=== PATIENT | female | born 1980 | race Caucasian/White ===

== ENCOUNTER 2016-09-04 17:40 | Emergency (ER) | payer OTHER ==
--- NOTE | 2016-09-04 21:50 | ED ORDER SUMMARY ---
..... Patient: TED MARSH OrderSheet [facility] VisitID: [id number] [place] [address] 36y, F Registration Date/Time: 09/04/2016 ORDER SHEET Weight: 95.7 kg (stated) Allergies: Penicillin, Compazine, Tramadol, Toradol GENERAL ORDERS: CBC w Diff Urgent (18:09/04/2016 Kat Magana) (Ack 18:30 TBergley) (18:44 LWhalen R.N.) CMP Urgent (18:09/04/2016 Kat Magana) (Ack 18:30 TBergley) (18:44 LWhalen R.N.) UA-Culture if indicated Urgent (18:09/04/2016 Kat Magana) (Ack 18:30 TBergley) (18:44 LWhalen R.N.) Amylase Urgent (18:09/04/2016 Kat Magana) (Ack 18:30 TBergley) (18:44 LWhalen R.N.) Lipase Urgent (18:09/04/2016 Kat Magana) (Ack 18:30 TBergley) (18:44 LWhalen R.N.) Urine Urgent (18:09/04/2016 Kat Magana) (Ack 18:30 TBergley) (18:44 LWhalen R.N.) Urine Drug Screen Urgent (18:09/04/2016 Kat Magana) (Ack 18:30 TBergley) (18:44 LWhalen R.N.) MEDICATION ORDERS: GI Cocktail RED PO 35 mL with Lidocaine Viscous Mouth/Throat 10 mL, Diphenhydramine Oral 10 mL, Maalox Plus Oral 15 mL (NOW) (20:04 09/04/2016 Kat Magana) (20:15 DBeyer R.N.) IV FLUIDS: IV NS : initial bolus none -, then 1000 mL/hr for X1 (NOW) (18:09/04/2016 Kat Magana) (18:43 LWhalen R.N.) Zofran IV 4 mg (NOW) (18:07 09/04/2016 Kat Magana) (18:43 Katherine Yan) Famotidine IV 20 mg/50mL (NOW) (20:05 09/04/2016 Kat Magana) (20:15 Kojo Yan) ORDER SHEET NOTES: [Electronically signed by Nixon Westbrook Dr. (22:15 09/04/2016)] [Electronically signed by Osiel Grant R.N. (03:36 09/05/2016)] [Electronically locked/signed by Osiel Grant R.N. (03:36 09/05/2016)]
--- NOTE | 2016-09-04 21:50 | ED ORDER SUMMARY ---
..... Patient: TED MARSH OrderSheet [facility] VisitID: [id number] [place] [address] 36y, F Registration Date/Time: 09/04/2016 ORDER SHEET Weight: 95.7 kg (stated) Allergies: Penicillin, Compazine, Tramadol, Toradol GENERAL ORDERS: CBC w Diff Urgent (18:09/04/2016 Kat Magana) (Ack 18:30 TBergley) (18:44 LWhalen R.N.) CMP Urgent (18:09/04/2016 Kat Magana) (Ack 18:30 TBergley) (18:44 LWhalen R.N.) UA-Culture if indicated Urgent (18:09/04/2016 Kat Magana) (Ack 18:30 TBergley) (18:44 LWhalen R.N.) Amylase Urgent (18:09/04/2016 Kat Magana) (Ack 18:30 TBergley) (18:44 LWhalen R.N.) Lipase Urgent (18:09/04/2016 Kat Magana) (Ack 18:30 TBergley) (18:44 LWhalen R.N.) Urine Urgent (18:09/04/2016 Kat Magana) (Ack 18:30 TBergley) (18:44 LWhalen R.N.) Urine Drug Screen Urgent (18:09/04/2016 Kat Magana) (Ack 18:30 TBergley) (18:44 LWhalen R.N.) MEDICATION ORDERS: GI Cocktail RED PO 35 mL with Lidocaine Viscous Mouth/Throat 10 mL, Diphenhydramine Oral 10 mL, Maalox Plus Oral 15 mL (NOW) (20:04 09/04/2016 Kat Magana) (20:15 DBeyer R.N.) IV FLUIDS: IV NS : initial bolus none -, then 1000 mL/hr for X1 (NOW) (18:09/04/2016 Kat Magana) (18:43 LWhalen R.N.) Zofran IV 4 mg (NOW) (18:07 09/04/2016 Kat Magana) (18:43 Katherine Yan) Famotidine IV 20 mg/50mL (NOW) (20:05 09/04/2016 Kat Magana) (20:15 Kojo Yan) ORDER SHEET NOTES: [Electronically signed by Nixon Westbrook Dr. (22:15 09/04/2016)] [Electronically signed by Osiel Grant R.N. (03:36 09/05/2016)] [Electronically locked/signed by Osiel Grant R.N. (03:36 09/05/2016)]
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
--- NOTE | 2016-09-05 03:37 | ED MAR SUMMARY ---
..... Medication Administration Record [facility] [address] [place] [address] Patient: TED MARSH Visit ID: [id number] 36y, F Weight: 95.7 kg Height/Length: 67 in BMI: 33.1 ALLERGIES: Toradol, Tramadol, Compazine, Penicillin Start 18:43 09/04/2016 Ciera Kumar R.N., Stop 20:39 09/04/2016 Osiel Grant R.N. Medication Administered: IV NS (SALINE), Dose: IV Fluids over 1 hour(s), Rate: 1000 mL/hr, Dispensed: 1000 mL bag, Site: #1 right wrist. Medication Ordered: IV NS : initial bolus none -, then 1000 mL/hr for X1 (NOW). Given 18:43 09/04/2016 Ciera Kumar R.N. Medication Administered: ZOFRAN [IVP] (ONDANSETRON HCL), Dose: 4 mg IVP over 2 minute(s), Site: #1 right wrist. Medication Ordered: Zofran IV 4 mg (NOW). Given 20:15 09/04/2016 Osiel Grant R.N. Medication Administered: GI COCKTAIL RED [PO] (MAGNESIUM-ALUMINUM), Dose: 35 mL PO. Medication Ordered: GI Cocktail RED PO 35 mL with Lidocaine Viscous Mouth/Throat 10 mL, Diphenhydramine Oral 10 mL, Maalox Plus Oral 15 mL (NOW). Given 20:15 09/04/2016 Osiel Grant R.N. Medication Administered: FAMOTIDINE [IVP], Dose: 20 mg IVP over 20 minute(s), Site: #1 right wrist. Medication Ordered: Famotidine IV 20 mg/50mL (NOW).
--- NOTE | 2016-09-05 03:37 | ED MAR SUMMARY ---
..... Medication Administration Record [facility] [address] [place] [address] Patient: TED MARSH Visit ID: [id number] 36y, F Weight: 95.7 kg Height/Length: 67 in BMI: 33.1 ALLERGIES: Toradol, Tramadol, Compazine, Penicillin Start 18:43 09/04/2016 Ciera Kumar R.N., Stop 20:39 09/04/2016 Osiel Grant R.N. Medication Administered: IV NS (SALINE), Dose: IV Fluids over 1 hour(s), Rate: 1000 mL/hr, Dispensed: 1000 mL bag, Site: #1 right wrist. Medication Ordered: IV NS : initial bolus none -, then 1000 mL/hr for X1 (NOW). Given 18:43 09/04/2016 Ciera Kumar R.N. Medication Administered: ZOFRAN [IVP] (ONDANSETRON HCL), Dose: 4 mg IVP over 2 minute(s), Site: #1 right wrist. Medication Ordered: Zofran IV 4 mg (NOW). Given 20:15 09/04/2016 Osiel Grant R.N. Medication Administered: GI COCKTAIL RED [PO] (MAGNESIUM-ALUMINUM), Dose: 35 mL PO. Medication Ordered: GI Cocktail RED PO 35 mL with Lidocaine Viscous Mouth/Throat 10 mL, Diphenhydramine Oral 10 mL, Maalox Plus Oral 15 mL (NOW). Given 20:15 09/04/2016 Osiel Grant R.N. Medication Administered: FAMOTIDINE [IVP], Dose: 20 mg IVP over 20 minute(s), Site: #1 right wrist. Medication Ordered: Famotidine IV 20 mg/50mL (NOW).
--- NOTE | 2016-09-05 03:37 | ED MED RECONCILIATION SUMMARY ---
Patient: TED MARSH Medication Reconciliation Report [facility] VisitID: [id number] [place] [address] 36y, F Registration Date/Time: 09/04/2016 Weight: 95.7 kg Height/Length: 67 in. BMI: 33.1 ALLERGIES: Compazine, Penicillin, Toradol, Tramadol The patient's Home Medications are listed below: CONTINUE TAKING THE FOLLOWING MEDICATIONS: Albuterol Sulfate HFA Inhalation Morphine Sulfate Oral Vit D-Vit E-Safflower Oil External Xanax Oral Zofran ODT Oral The source(s) of the original Home Medication information: Not obtained. The following Medications were given to the patient in the Emergency Department: IV NS IV Fluids bolus 0, then 1000 mL/hr, administered: 09/04/2016 6:43:00 PM Zofran [IVP] IVP 4 mg, administered: 09/04/2016 6:43:00 PM Famotidine [IVP] IVP 20 mg, administered: 09/04/2016 8:15:00 PM GI COCKTAIL RED [PO] PO 35 mL, administered: 09/04/2016 8:15:00 PM The following Medications were prescribed to the patient: Zantac 150 mg: take 1 orally every 12 hours. Dispense sixty (60). No refills. Substitution is permissible. -- Nixon Westbrook Dr.
--- NOTE | 2016-09-05 03:37 | ED MED RECONCILIATION SUMMARY ---
Patient: TED MARSH Medication Reconciliation Report [facility] VisitID: [id number] [place] [address] 36y, F Registration Date/Time: 09/04/2016 Weight: 95.7 kg Height/Length: 67 in. BMI: 33.1 ALLERGIES: Compazine, Penicillin, Toradol, Tramadol The patient's Home Medications are listed below: CONTINUE TAKING THE FOLLOWING MEDICATIONS: Albuterol Sulfate HFA Inhalation Morphine Sulfate Oral Vit D-Vit E-Safflower Oil External Xanax Oral Zofran ODT Oral The source(s) of the original Home Medication information: Not obtained. The following Medications were given to the patient in the Emergency Department: IV NS IV Fluids bolus 0, then 1000 mL/hr, administered: 09/04/2016 6:43:00 PM Zofran [IVP] IVP 4 mg, administered: 09/04/2016 6:43:00 PM Famotidine [IVP] IVP 20 mg, administered: 09/04/2016 8:15:00 PM GI COCKTAIL RED [PO] PO 35 mL, administered: 09/04/2016 8:15:00 PM The following Medications were prescribed to the patient: Zantac 150 mg: take 1 orally every 12 hours. Dispense sixty (60). No refills. Substitution is permissible. -- Nixon Westbrook Dr.
--- NOTE | 2016-09-05 03:37 | ED DISCHARGE INSTRUCTIONS ---
Patient: TED MARSH General Instructions [facility] VisitID: [id number] [place] [address] 36y, F Registration Date/Time: 09/04/2016 Acute gastritis. No alcoholic gastritis or hemorrhagic gastritis. INSTRUCTIONS Avoid alcohol and NSAIDS. NSAIDS include aspirin, ibuprofen (Advil) and naproxen (Aleve). Avoid fatty and spicy foods. Your Current Medications: CONTINUE TAKING THE FOLLOWING MEDICATIONS: Albuterol Sulfate HFA Inhalation. Morphine Sulfate Oral. Vit D-Vit E-Safflower Oil External. Xanax Oral. Zofran ODT Oral. Prescription Medications: Zantac 150 mg: take 1 orally every 12 hours. Dispense sixty (60). No refills. Substitution is permissible. Follow-up: Follow up with your doctor in about four days. Call for an appointment. Screening today revealed the patient's blood pressure to be in the pre-hypertensive range. The patient should follow up with a primary care provider for blood pressure management. ADDITIONAL INFORMATION Gastritis (Adult) Gastritis is an irritation of the stomach lining. It can be acute (recent) or chronic (lasting a long time). Gastritis can be caused by overuse of alcohol or anti-inflammatory medications (such as aspirin, ibuprofen, or prednisone). H pyloriinfection can also cause chronic gastritis. Gastritis can cause a dull ache or burning pain in the upper abdomen. Other symptoms include nausea, vomiting, loss of appetite, and belching or bloating. Blood in the vomit or stools (red or black) is a sign of bleeding in the stomach. This requires immediate medical attention. Tests for H pyloriare used to screen for bacterial infection. If no infection is found, gastritis can be treated by stopping the cause and treating with antacids plus an acid theresa medication. If H pylori infection is found, antibiotics will also be prescribed. Persons 55 years and older may undergo other tests before treatment is started. Two common tests are used to evaluate your symptoms. An upper GI series is an x-ray taken after you drink a chalky liquid called barium. This coats the stomach and allows the doctor to view any problems in the stomach on the x-ray. Another test is called endoscopy, during which a long thin tube called an endoscope is passed down your throat to the stomach. A camera at the end of the scope allows the doctor to view inside the stomach to check the cause of your symptoms. Home Care: Take the prescribed acid theresa medication for the full course of treatment even if you begin to feel better sooner. This medication can take up to several days to fully control your symptoms. If you cant afford the prescribed medication, you can try [id number] acid blockers, such as Pepcid AC, Tagamet, Zantac, or Aciphex. If these do not relieve your symptoms, a stronger acid-theresa can be tried, such as Prilosec OTC. If you have been prescribed an antibiotic to treat H pyloriinfection, finish the full course of medication. Do so even if you begin to feel better sooner. If you stop the medication too soon, the infection can return and be harder to treat. You can use antacids, such as Tums, Rolaids, Mylanta, or Maalox, for pain. This will be useful the first few days after starting acid blockers when the blockers havent started working yet. Follow the directions on the label. Liquid antacids may work better than tablets. Note that antacids can interfere with absorption of certain medications. Specifically, do not take Tagamet (cimetidine), Zantac (ranitidine), or Carafate (sucralfate) within 1 hour of taking an antacid. Talk with your pharmacist if you have any questions. Symptoms of gastritis can be worsened by certain foods. Limit or avoid fatty, fried, and spicy foods, as well as coffee, chocolate, mint, and foods with high acid content such as tomatoes and citrus fruit and juices (orange, grapefruit, lemon). Avoid alcohol, caffeine, and tobacco, which can delay healing. Avoid aspirin and anti-inflammatory medications such as ibuprofen (Advil, Motrin) and naproxen (Naprosyn, Aleve). Acetaminophen (Tylenol) is safe to use. Do not take more than the amount listed on the label. Follow Up with your doctor, or as advised by our staff. Further testing may be needed. If you do not improve over the next 4 days, contact your doctor. If you had an x-ray, CT scan, or ECG (electrocardiogram), it will be reviewed by a specialist. Youll be notified of any new findings that affect your care. Get Prompt Medical Attention if any of the following occur: Stomach pain gets worse or moves to the lower right abdomen (appendix area) Chest pain appears or gets worse, or spreads to the back, neck, shoulder, or arm Frequent vomiting (cant keep down liquids) Blood in the stool or vomit (red or black in color) Feeling weak or dizzy, fainting, or trouble breathing Fever of 100.4F (38C) or higher, or as directed by your healthcare provider [place] Diet A bland diet is used for patients with an upset stomach. It consists of foods that are mild and easy to digest. It is better to eat small frequent meals rather than three large meals a day. BEVERAGES OK: Fruit juices, non-caffeinated teas and coffee, non-carbonated torres AVOID: Carbonated beverage, caffeinated tea and coffee, all alcoholic beverages BREAD OK: Refined white, wheat or rye bread, linda or soda crackers, [place] toast, plain rolls, bagels AVOID: Whole-grain bread CEREAL OK: Refined cereals: cooked or ready to eat AVOID: Whole grain cereals and granola, or those containing bran, seeds or nuts DESSERTS OK: Peanut butter and all others except those to "avoid" AVOID: Chocolate, cocoa, coconut, popcorn, nuts, seeds, jam, marmalade FRUITS OK: Canned, cooked, frozen or fresh fruits without seeds or tough skin AVOID: Olives, skin and seeds of fruit MEATS OK: All fresh or preserved meat, fish and fowl AVOID: Any that are prepared with those spices to "avoid" CHEESE & EGGS OK: Eggs, cottage cheese, cream cheese, other cheeses AVOID: All cheeses made with those spices to "avoid" POTATOES & PASTA OK: Potato, rice, macaroni, noodles, spaghetti AVOID: None SOUPS OK: All soups without heavy seasoning AVOID: Soups made with those spices to "avoid" VEGETABLES OK: Canned, cooked, fresh or frozen mildly flavored vegetables without seeds, skins or coarse fiber AVOID: Vegetables prepared with those spices to "avoid"; skin and seeds of vegetables and those with coarse fiber SPICES OK: Salt, lemon and [place] juice, vinegar, all extracts, alejandra, cinnamon, thyme, mace, allspice, paprika AVOID: [place] powder, cloves, pepper, seed spices, garlic, gravy pickles, highly seasoned salad dressings Ranitidine Hydrochloride Oral tablet What is this medicine? RANITIDINE (ra AKBAR payan) is a type of antihistamine that blocks the release of stomach acid. It is used to treat stomach or intestinal ulcers. It can relieve ulcer pain and discomfort, and the heartburn from acid reflux. How should I use this medicine? Take this medicine by mouth with a glass of water. Follow the directions on the prescription label. If you only take this medicine once a day, take it at bedtime. Take your medicine at regular intervals. Do not take your medicine more often than directed. Do not stop taking except on your doctor's advice. Talk to your molder apprentice regarding the use of this medicine in children. Special care may be needed. What side effects may I notice from receiving this medicine? Side effects that you should report to your doctor or health health care facilities inspector as soon as possible: agitation, nervousness, depression, hallucinations allergic reactions like skin rash, itching or hives, swelling of the face, lips, or tongue breast enlargement in both males and females breathing problems redness, blistering, peeling or loosening of the skin, including inside the mouth unusual bleeding or bruising unusually weak or tired vomiting yellowing of the skin or eyes Side effects that usually do not require medical attention (report to your doctor or health health care facilities inspector if they continue or are bothersome): constipation or diarrhea dizziness headache nausea What may interact with this medicine? atazanavir delavirdine gefitinib glipizide ketoconazole midazolam procainamide propantheline triazolam warfarin What if I miss a dose? If you miss a dose, take it as soon as you can. If it is almost time for your next dose, take only that dose. Do not take double or extra doses. Where should I keep my medicine? Keep out of the reach of children. Store at room temperature between 15 and 30 degrees C (59 and 86 degrees F). Protect from light and moisture. Keep container tightly closed. Throw away any unused medicine after the expiration date. What should I tell my health care provider before I take this medicine? They need to know if you have any of these conditions: kidney disease liver disease porphyria an unusual or allergic reaction to ranitidine, other medicines, foods, dyes, or preservatives or trying to get breast-feeding What should I watch for while using this medicine? Tell your doctor or health health care facilities inspector if your condition does not start to get better or gets worse. You may need to take this medicine for several days as prescribed before your symptoms get better. Finish the full course of tablets prescribed, even if you feel better. Do not smoke cigarettes or drink alcohol. These increase irritation in your stomach and can lengthen the time it will take for ulcers to heal. Cigarettes and alcohol can also make acid reflux or heartburn worse. If you get black, tarry stools or vomit up what looks like coffee grounds, call your doctor or health health care facilities inspector at once. You may have a bleeding ulcer. You have been given the following additional information: Gastritis (Adult) Diet, [place] (Adult) Ranitidine Hydrochloride Oral tablet (Electronically signed by Nixon Westbrook Dr. 09/04/2016 22:15)
--- NOTE | 2016-09-05 03:37 | ED DISCHARGE INSTRUCTIONS ---
Patient: TED MARSH General Instructions [facility] VisitID: [id number] [place] [address] 36y, F Registration Date/Time: 09/04/2016 Acute gastritis. No alcoholic gastritis or hemorrhagic gastritis. INSTRUCTIONS Avoid alcohol and NSAIDS. NSAIDS include aspirin, ibuprofen (Advil) and naproxen (Aleve). Avoid fatty and spicy foods. Your Current Medications: CONTINUE TAKING THE FOLLOWING MEDICATIONS: Albuterol Sulfate HFA Inhalation. Morphine Sulfate Oral. Vit D-Vit E-Safflower Oil External. Xanax Oral. Zofran ODT Oral. Prescription Medications: Zantac 150 mg: take 1 orally every 12 hours. Dispense sixty (60). No refills. Substitution is permissible. Follow-up: Follow up with your doctor in about four days. Call for an appointment. Screening today revealed the patient's blood pressure to be in the pre-hypertensive range. The patient should follow up with a primary care provider for blood pressure management. ADDITIONAL INFORMATION Gastritis (Adult) Gastritis is an irritation of the stomach lining. It can be acute (recent) or chronic (lasting a long time). Gastritis can be caused by overuse of alcohol or anti-inflammatory medications (such as aspirin, ibuprofen, or prednisone). H pyloriinfection can also cause chronic gastritis. Gastritis can cause a dull ache or burning pain in the upper abdomen. Other symptoms include nausea, vomiting, loss of appetite, and belching or bloating. Blood in the vomit or stools (red or black) is a sign of bleeding in the stomach. This requires immediate medical attention. Tests for H pyloriare used to screen for bacterial infection. If no infection is found, gastritis can be treated by stopping the cause and treating with antacids plus an acid theresa medication. If H pylori infection is found, antibiotics will also be prescribed. Persons 55 years and older may undergo other tests before treatment is started. Two common tests are used to evaluate your symptoms. An upper GI series is an x-ray taken after you drink a chalky liquid called barium. This coats the stomach and allows the doctor to view any problems in the stomach on the x-ray. Another test is called endoscopy, during which a long thin tube called an endoscope is passed down your throat to the stomach. A camera at the end of the scope allows the doctor to view inside the stomach to check the cause of your symptoms. Home Care: Take the prescribed acid theresa medication for the full course of treatment even if you begin to feel better sooner. This medication can take up to several days to fully control your symptoms. If you cant afford the prescribed medication, you can try [id number] acid blockers, such as Pepcid AC, Tagamet, Zantac, or Aciphex. If these do not relieve your symptoms, a stronger acid-theresa can be tried, such as Prilosec OTC. If you have been prescribed an antibiotic to treat H pyloriinfection, finish the full course of medication. Do so even if you begin to feel better sooner. If you stop the medication too soon, the infection can return and be harder to treat. You can use antacids, such as Tums, Rolaids, Mylanta, or Maalox, for pain. This will be useful the first few days after starting acid blockers when the blockers havent started working yet. Follow the directions on the label. Liquid antacids may work better than tablets. Note that antacids can interfere with absorption of certain medications. Specifically, do not take Tagamet (cimetidine), Zantac (ranitidine), or Carafate (sucralfate) within 1 hour of taking an antacid. Talk with your pharmacist if you have any questions. Symptoms of gastritis can be worsened by certain foods. Limit or avoid fatty, fried, and spicy foods, as well as coffee, chocolate, mint, and foods with high acid content such as tomatoes and citrus fruit and juices (orange, grapefruit, lemon). Avoid alcohol, caffeine, and tobacco, which can delay healing. Avoid aspirin and anti-inflammatory medications such as ibuprofen (Advil, Motrin) and naproxen (Naprosyn, Aleve). Acetaminophen (Tylenol) is safe to use. Do not take more than the amount listed on the label. Follow Up with your doctor, or as advised by our staff. Further testing may be needed. If you do not improve over the next 4 days, contact your doctor. If you had an x-ray, CT scan, or ECG (electrocardiogram), it will be reviewed by a specialist. Youll be notified of any new findings that affect your care. Get Prompt Medical Attention if any of the following occur: Stomach pain gets worse or moves to the lower right abdomen (appendix area) Chest pain appears or gets worse, or spreads to the back, neck, shoulder, or arm Frequent vomiting (cant keep down liquids) Blood in the stool or vomit (red or black in color) Feeling weak or dizzy, fainting, or trouble breathing Fever of 100.4F (38C) or higher, or as directed by your healthcare provider [place] Diet A bland diet is used for patients with an upset stomach. It consists of foods that are mild and easy to digest. It is better to eat small frequent meals rather than three large meals a day. BEVERAGES OK: Fruit juices, non-caffeinated teas and coffee, non-carbonated torres AVOID: Carbonated beverage, caffeinated tea and coffee, all alcoholic beverages BREAD OK: Refined white, wheat or rye bread, linda or soda crackers, [place] toast, plain rolls, bagels AVOID: Whole-grain bread CEREAL OK: Refined cereals: cooked or ready to eat AVOID: Whole grain cereals and granola, or those containing bran, seeds or nuts DESSERTS OK: Peanut butter and all others except those to "avoid" AVOID: Chocolate, cocoa, coconut, popcorn, nuts, seeds, jam, marmalade FRUITS OK: Canned, cooked, frozen or fresh fruits without seeds or tough skin AVOID: Olives, skin and seeds of fruit MEATS OK: All fresh or preserved meat, fish and fowl AVOID: Any that are prepared with those spices to "avoid" CHEESE & EGGS OK: Eggs, cottage cheese, cream cheese, other cheeses AVOID: All cheeses made with those spices to "avoid" POTATOES & PASTA OK: Potato, rice, macaroni, noodles, spaghetti AVOID: None SOUPS OK: All soups without heavy seasoning AVOID: Soups made with those spices to "avoid" VEGETABLES OK: Canned, cooked, fresh or frozen mildly flavored vegetables without seeds, skins or coarse fiber AVOID: Vegetables prepared with those spices to "avoid"; skin and seeds of vegetables and those with coarse fiber SPICES OK: Salt, lemon and [place] juice, vinegar, all extracts, alejandra, cinnamon, thyme, mace, allspice, paprika AVOID: [place] powder, cloves, pepper, seed spices, garlic, gravy pickles, highly seasoned salad dressings Ranitidine Hydrochloride Oral tablet What is this medicine? RANITIDINE (ra AKBAR payan) is a type of antihistamine that blocks the release of stomach acid. It is used to treat stomach or intestinal ulcers. It can relieve ulcer pain and discomfort, and the heartburn from acid reflux. How should I use this medicine? Take this medicine by mouth with a glass of water. Follow the directions on the prescription label. If you only take this medicine once a day, take it at bedtime. Take your medicine at regular intervals. Do not take your medicine more often than directed. Do not stop taking except on your doctor's advice. Talk to your ethical hacker regarding the use of this medicine in children. Special care may be needed. What side effects may I notice from receiving this medicine? Side effects that you should report to your doctor or health customer care consultant as soon as possible: agitation, nervousness, depression, hallucinations allergic reactions like skin rash, itching or hives, swelling of the face, lips, or tongue breast enlargement in both males and females breathing problems redness, blistering, peeling or loosening of the skin, including inside the mouth unusual bleeding or bruising unusually weak or tired vomiting yellowing of the skin or eyes Side effects that usually do not require medical attention (report to your doctor or health customer care consultant if they continue or are bothersome): constipation or diarrhea dizziness headache nausea What may interact with this medicine? atazanavir delavirdine gefitinib glipizide ketoconazole midazolam procainamide propantheline triazolam warfarin What if I miss a dose? If you miss a dose, take it as soon as you can. If it is almost time for your next dose, take only that dose. Do not take double or extra doses. Where should I keep my medicine? Keep out of the reach of children. Store at room temperature between 15 and 30 degrees C (59 and 86 degrees F). Protect from light and moisture. Keep container tightly closed. Throw away any unused medicine after the expiration date. What should I tell my health care provider before I take this medicine? They need to know if you have any of these conditions: kidney disease liver disease porphyria an unusual or allergic reaction to ranitidine, other medicines, foods, dyes, or preservatives or trying to get breast-feeding What should I watch for while using this medicine? Tell your doctor or health customer care consultant if your condition does not start to get better or gets worse. You may need to take this medicine for several days as prescribed before your symptoms get better. Finish the full course of tablets prescribed, even if you feel better. Do not smoke cigarettes or drink alcohol. These increase irritation in your stomach and can lengthen the time it will take for ulcers to heal. Cigarettes and alcohol can also make acid reflux or heartburn worse. If you get black, tarry stools or vomit up what looks like coffee grounds, call your doctor or health customer care consultant at once. You may have a bleeding ulcer. You have been given the following additional information: Gastritis (Adult) Diet, [place] (Adult) Ranitidine Hydrochloride Oral tablet (Electronically signed by Nixon Westbrook Dr. 09/04/2016 22:15)
== END 2016-09-04 22:05 | disposition home or self-care (01) ==
LOC: ED SRH 17:40
DX: K29.00 Acute gastritis without bleeding (principal); I10 Essential (primary) hypertension; Z88.0 Allergy status to penicillin; Z88.5 Allergy status to narcotic agent
CPT/HCPCS: 90004; 90100; 92235; 92530; 92760; 92761; 92762; 92763; 92764; 92765; 92766; 92767; 93070; 95059